=== PATIENT | female | born 1985 | race Asian ===

== ENCOUNTER 2024-07-23 14:55 | Outpatient (CLI) | payer BC, OTHER | END 2024-07-23 23:59 | disposition home or self-care (01) | LOC: MRI 14:55 | PROVIDERS: ATTEND Family Medicine Sports Medicine | DX: S62.91XA Unspecified fracture of right hand, initial encounter for closed fracture (principal); M79.641 Pain in right hand; X58.XXXA Exposure to other specified factors, initial encounter; Y93.89 Activity, other specified; Y92.89 Other specified places as the place of occurrence of the external cause; Y99.8 Other external cause status | CPT/HCPCS: 73218 ==